=== PATIENT | male | born 1990 | race Caucasian/White ===

== ENCOUNTER 2022-03-28 11:43 | Observation (INO) | payer OTHER, SELFPAY ==
[2022-03-28 11:46] VITALS: BP 137/89; PULSE 112; RESP 18; TEMP 36.2; O2SAT 100; BMI 24.5
--- NOTE | 2022-03-28 12:30 | EKG12_ITS ---
Test Reason : ABN LABS Blood Pressure : / mmHG Vent. Rate : 096 BPM Atrial Rate : 096 BPM P-R Int : 152 ms QRS Dur : 086 ms QT Int : 330 ms P-R-T Axes : 041 000 006 degrees QTc Int : 416 ms Normal sinus rhythm Normal ECG Confirmed by JHON MARTINEZ, RAPHAEL ([id number]), editor book TROY KRISHNA ([id number]) on 03/30/2022 10:45:26 AM Referred By: Confirmed By:RAPHAEL FERREIRA MD
--- NOTE | 2022-03-28 12:37 | EX.ED.DYSGE1 ---
HPI History of Present Illness Chief Complaint: General Illness Narrative Narrative: 31-year-old [place] male with history of schizophrenia presenting with generalized fatigue. His father states that he has just been sluggish for about 2 weeks to 4 weeks. He states is not dizzy or falling. He states he does drink a lot of water. He states has been urinating frequently. Patient is currently on Depakote for history of schizophrenia. Father states that he had routine blood work done yesterday and follow-up because he is on Depakote. Depakote level was ordered but is pending and will not come back until Wednesday. Patient had a BMP which showed a low sodium at 120. Patient was sent to the emergency room. Patient does not complain of any lightheadedness, dizziness, falling. Father reports only sluggishness and increased thirst. PFSH PFSH Medical History Psychiatric diagnosis Home Medications desmopressin 0.2 mg tablet 0.2 mg PO DAILY BED WETTING 03/28/22 [History Last Taken 03/27/22] divalproex 500 mg tablet,extended release 24 hr 500 mg PO BID SCHITZOPHRENIA 03/28/22 [History Last Taken 03/28/22] gabapentin 100 mg capsule 100 mg PO BID TENSION 03/28/22 [History Last Taken 03/28/22] olanzapine 15 mg tablet 15 mg PO DAILY SIDE EFFECTES OF DIVALPROEX 03/28/22 [History Last Taken 03/27/22] Allergy/AdvReac Type Severity Reaction Status Date / Time No Known Allergies Allergy Verified 03/28/22 11:45 Social History Smoking Status: Never smoker ROS ROS ED Constitutional Constitutional ED: Denies chills or fever(s) Eyes Eyes: Denies change in vision or diplopia ENT ENT ED: Denies rhinorrhea or sore throat Cardiovascular Cardiovascular: Denies chest pain or palpitations Respiratory/Chest Respiratory/Chest: Denies cough or dyspnea Gastrointestinal Gastrointestinal: Denies abdominal pain, nausea or vomiting Genitourinary Genitourinary ED: Reports urinary frequency Musculoskeletal Musculoskeletal: Denies arthralgias or back pain Integumentary Denies abscess Neurologic Neurologic: Denies headache(s) Endocrine Endocrinology: Reports polydipsia and polyuria EXAM Physical Exam Const Vital Signs: 03/28/22 11:46 03/28/22 11:50 Temperature 97.1 F L Temperature Source Oral Pulse Rate 112 H Respiratory Rate 18 Respiratory Pattern Normal Blood Pressure 137/89 H Blood Pressure Mean 105 Pulse Ox 100 Oxygen Delivery Method Room Air Positive well nourished General Appearance ED: NAD; Negative for pallor HEENT Reports moist mucous membranes Eyes PERRL and EOMs intact bilaterally Chest Wall inspection of chest normal and palpation of chest normal Resp normal respiratory effort Auscultation: Negative for rales, rhonchi or wheezes Cardio regular rate Rate: tachycardic GI normal to inspection, nondistended, normoactive bowel sounds Extremity normal to inspection General Extremety ED: Negative for edema or tenderness General Extremity: Negative for edema Neuro Sensorium / Orientation: alert Psych mental status grossly normal Skin no rashes or lesions noted and no wounds General Skin Exam: Negative for jaundice or pallor MDM MDM MDM Narrative Medical decision making narrative: Patient presenting with history of low sodium. His father states his lowest was 117 years ago when he was admitted [facility]. Differential at this point includes hyponatremia, hypochloremia, Depakote toxicity, dehydration, anemia. He had a CMP performed yesterday which shows that his BUN was 7, creatinine 0.69 sodium 120. We will obtain a CBC to assess for white blood cell count and differential. Will obtain repeat BMP to compare to previous. Patient is also on Depakote I will obtain a level of this. CBC shows no leukocytosis. Hemoglobin hematocrit are stable. Platelets are normal. BMP shows hyponatremia with a sodium 123. There is also low chloride at 90. Creatinine is normal. GFR is normal. Glucose slightly elevated at 114 without anion gap. Depakote level is 41 and slightly low. Urinalysis obtained for urinary frequency and is negative. Impression: 1. Hyponatremia 2. Subtherapeutic Depakote level 3. History of desmopressin use Lab Data Attestation: I reviewed the patient's lab results. Labs: Laboratory Results - last 24 hr 03/28/22 03/28/22 03/28/22 12:55 12:55 12:55 WBC 7.1 RBC 5.40 Hgb 15.4 Hct 44.6 MCV 82.6 MCH 28.5 MCHC 34.5 RDW Std Deviation 39.4 RDW Coeff of Jeff 13.2 Plt Count 250 MPV 9.9 Immature Gran % (Auto) 0.600 Neut % (Auto) 71.9 H Lymph % (Auto) 16.3 L [place] % (Auto) 10.2 H Eos % (Auto) 0.4 Baso % (Auto) 0.6 Absolute Neuts (auto) 5.1 Absolute Lymphs (auto) 1.15 Nucleated RBC % 0 Sodium 123 L Potassium 4.7 Chloride 90 L Carbon Dioxide 28.0 Anion Gap 5 BUN 7 Creatinine 0.68 L Estim Creat Clear Calc 143.34 Est GFR (MDRD) Af Amer 176 Est GFR (MDRD) Non-Af 145 BUN/Creatinine Ratio 10.3 Glucose 114 H Calcium 9.3 Total Bilirubin 0.40 AST 35 ALT 109 H Alkaline Phosphatase 78 Total Protein 7.1 Albumin 4.1 Globulin 3.0 Albumin/Globulin Ratio 1.4 Urine Color Urine Clarity Urine pH Ur Specific [place] Urine Protein Urine Glucose (UA) Urine Ketones Urine Occult Blood Urine Nitrite Urine Bilirubin Urine Urobilinogen Ur Leukocyte Esterase Urine RBC Urine WBC Ur Squamous Epith Cells Urine Bacteria Urine Mucus Valproic Acid 41 L 03/28/22 12:55 WBC RBC Hgb Hct MCV MCH MCHC RDW Std Deviation RDW Coeff of Jeff Plt Count MPV Immature Gran % (Auto) Neut % (Auto) Lymph % (Auto) [place] % (Auto) Eos % (Auto) Baso % (Auto) Absolute Neuts (auto) Absolute Lymphs (auto) Nucleated RBC % Sodium Potassium Chloride Carbon Dioxide Anion Gap BUN Creatinine Estim Creat Clear Calc Est GFR (MDRD) Af Amer Est GFR (MDRD) Non-Af BUN/Creatinine Ratio Glucose Calcium Total Bilirubin AST ALT Alkaline Phosphatase Total Protein Albumin Globulin Albumin/Globulin Ratio Urine Color Yellow Urine Clarity Clear Urine pH 8.0 Ur Specific [place] 1.010 Urine Protein Negative Urine Glucose (UA) Normal Urine Ketones Negative Urine Occult Blood Negative Urine Nitrite Negative Urine Bilirubin Negative Urine Urobilinogen Normal Ur Leukocyte Esterase Negative Urine RBC 0 SEEN Urine WBC 0 SEEN Ur Squamous Epith Cells 0 SEEN Urine Bacteria 0 SEEN Urine Mucus 0 SEEN Valproic Acid Discharge Plan Triage Chief Complaint: General Illness ED Provider: Jesus Braga Dx/Rx/DC Orders Prescriptions: No Action desmopressin 0.2 mg tablet 0.2 mg PO DAILY Label Comments: TAKE ONE TABLET BY MOUTH EVERY EVENING divalproex 500 mg tablet extended release 24 hr 500 mg PO BID Label Comments: TAKE ONE TABLET BY MOUTH TWICE DAILY olanzapine 15 mg tablet 15 mg PO DAILY Label Comments: TAKE TWO TABLETS BY MOUTH EVERY NIGHT AT BEDTIME gabapentin 100 mg capsule 100 mg PO BID Label Comments: TAKE TWO CAPSULES BY MOUTH TWICE DAILY Primary Care Provider: Trip Drake Referrals: Trip Drake DO [Primary Care Provider] -
[2022-03-28 13:02] LABS: Bacteria 0 SEEN /hpf (None Seen); Mucous, Urine 0 SEEN /hpf (<or=2+); Red Blood Cells-Urine 0 SEEN /hpf (0-5); Squamous Epithelial Cells - UA 0 SEEN /hpf (0-5); White Blood Cells 0 SEEN /hpf (0-5)
[2022-03-28 13:05] LABS: Absolute Lymphocyte Count 1.15 X10^3/uL (0.83-4.51); Absolute Neutrophil Count 5.1 X10^3/uL (2.0-7.7); Basophil# 0.04 X10^3/uL; Basophil% 0.6 % (0-1); Eosinophil# 0.03 X10^3/uL; Eosinophils% 0.4 % (0-5); Hematocrit 44.6 % (40-54); Hemoglobin 15.4 g/dL (13.0-16.5); Lymphocyte # 1.15 X10^3/ul (0.83-4.51); Lymphocyte % 16.3 % (19-41); Mean Corp Hgb Conc 34.5 g/dL (32-36); Mean Corpuscular Hgb 28.5 pg (27.0-32.0); Mean Corpuscular Volume 82.6 fL (80-94); Mean Platelet Vol. 9.9 fl (6.2-12.0); Monocyte# 0.72 X10^3/uL; Monocyte% 10.2 % (0-10); NRBC Flagged by Analyzer 0 % (0-5); Neutrophil # 5.07 X10^3/uL (2.7-7.7); Neutrophil % 71.9 % (47-70); Platelet Count 250 K/mm3 (150-450); RBC Distribution Width CV 13.2 % (11.6-14.6); RBC Distribution Width SD 39.4 fl (35.1-43.9); White Blood Count 7.1 K/mm3 (4.4-11.0)
[2022-03-28 13:06] LABS: Color, Urine Yellow (Yellow); Glucose, Dipstick Normal (Normal); Ketone-Dipstick Negative (Negative); Leukocyte Esterase-Dipstick Negative /ul (Negative); Nitrite-Dipstick Negative (Negative); Occult Blood-Urine Negative /ul (Negative); Protein-Dipstick Negative (Negative); Urine Bilirubin Dipstick Negative (Negative); Urine Clarity Clear (Clear); Urine Urobilinogen Normal (Normal)
[2022-03-28 13:22] LABS: ALB/GLOB Ratio 1.4 RATIO (0.9-2.4); AST(SGOT) 35 U/L (15-37); Alanine Aminotransfer ALT/SGPT 109 U/L (16-61); Albumin, Serum 4.1 g/dL (3.2-5.0); Alkaline Phosphatase 78 U/L (45-117); Anion Gap 5 (5-15); BUN 7 mg/dL (7-18); BUN/Creat Ratio 10.3 RATIO (10-20); Calcium,Total 9.3 mg/dL (8.5-10.1); Chloride 90 mmol/L (98-107); Creatinine, Serum 0.68 mg/dL (0.70-1.30); EST Glomerular Filtration Rate 145 mL/min (>60); Est Glom Filt Rate - Afr Amer 176 mL/min (>60); Estimated Creatinine Clearance 143.34 ml/min; Glucose 114 mg/dL (74-106); Potassium 4.7 mmol/L (3.5-5.1); Protein, Total 7.1 g/dL (6.4-8.2); Sodium Level 123 mmol/L (136-145)
[2022-03-28 13:27] LABS: Valproic Acid (Depakene) Level 41 ug/mL (50-100)
[2022-03-28 15:18] VITALS: BP 143/85; PULSE 97; RESP 14; TEMP 36.2; O2SAT 98
--- NOTE | 2022-03-28 15:57 | HP.PCM.HOS_ITS ---
HPI - General General Date of Admission: 03/28/22 HPI Narrative ROMAN BRADY, is a 31 M who presents to the hospital with abnormal labs. He was seen by his psychiatrist on and they recommended outpatient lab work and he was notified by nursing today that his sodium was of 120 so they were asked to come into the ER for further evaluation. Other work-up is unremarkable and his sodium today is 123. He does have a history of schizophrenia and is on desmopressin which can lead to both increased water intake as well as hyponatremia. He is on the desmopressin for bedwetting and he is on Depakote and olanzapine for schizophrenia. No other fevers or chills, he does not appear to be dehydrated and in fact his father indicates that he drinks quite a bit of water on his own. No major infectious etiology, there was a valproic acid level done in the ER today which came back low at 41. [facility] Medical History Psychiatric diagnosis Home Medications desmopressin 0.2 mg tablet 0.2 mg PO DAILY BED WETTING 03/28/22 [History Last Taken 03/27/22] divalproex 500 mg tablet,extended release 24 hr 500 mg PO BID SCHITZOPHRENIA 03/28/22 [History Last Taken 03/28/22] gabapentin 100 mg capsule 100 mg PO BID TENSION 03/28/22 [History Last Taken 03/28/22] olanzapine 15 mg tablet 15 mg PO DAILY SIDE EFFECTES OF DIVALPROEX 03/28/22 [History Last Taken 03/27/22] Allergy/AdvReac Type Severity Reaction Status Date / Time No Known Allergies Allergy Verified 03/28/22 11:45 Family History (Updated 03/28/22 @ 16:[address] Omid Ladd MD) Other CVA (cerebral vascular accident) no surgical history Social History Smoking Status: Never smoker ROS Constitutional Constitutional: Reports fatigue; Denies chills, fever(s) or malaise Eyes Eyes: Denies blurry vision ENT HEENT: Denies headache(s) or nasal discharge Cardiovascular Cardiovascular: Denies chest pain, dyspnea on exertion or syncope Respiratory/Chest Respiratory/Chest: Denies cough, shortness of breath at rest or shortness of breath with exertion Gastrointestinal Gastrointestinal: Denies constipation, diarrhea, nausea or vomiting Genitourinary Genitourinary: Reports urinary frequency; Denies dysuria Neurologic Neurologic: Denies focal weakness, numbness or tremor(s) Psychiatric Psychiatric: Denies anxiety or depression Vital Signs Vital Signs Vital Signs: 03/28/22 11:46 03/28/22 11:50 03/28/22 15:18 Temperature 97.1 F L 97.2 F L Temperature Source Oral Temporal Pulse Rate 112 H 97 Respiratory Rate 18 14 Respiratory Pattern Normal Blood Pressure 137/89 H 143/85 H Blood Pressure Mean 105 104 Pulse Ox 100 98 Oxygen Delivery Method Room Air Room Air Weight Weight: 152 lb 5.431 oz Body Mass Index (BMI) 24.5 Physical Exam Narrative General: Alert, Oriented x3, Cooperative, No apparent distress HEENT: Atraumatic, PERRLA, EOMI, Normocephalic Oral: Moist Mucosa Neck: Supple, No JVD Lungs: Clear to auscultation, Normal air movement, No rhonchi, No wheeze, No rales Cardiovascular: Regular rate, Regular Rhythm, Normal S1, Normal S2, No murmurs Abdomen: Soft, Non Tender, Non-Distended, No Hepato-splenomegaly Extremities: No edema, Capillary Refill Less than 3 Seconds Skin: No rashes, No breakdown Musculoskeletal: No Tenderness to Palpation of Joints or Extremities Neurological: Cranial nerves II-XII grossly intact, Motor Exam 5/5 strength throughout, Sensory exam intact to light touch and pain Psych/Mental Status: Flat affect, Appropriate Results Lab / Micro Data Result Diagrams: 03/28/22 12:55 03/28/22 12:55 Labs: Laboratory Results - last 24 hr 03/28/22 12:55: WBC 7.1, RBC 5.40, Hgb 15.4, Hct 44.6, MCV 82.6, MCH 28.5, MCHC 34.5, RDW Std Deviation 39.4, RDW Coeff of Jeff 13.2, Plt Count 250, MPV 9.9, Immature Gran % (Auto) 0.600, Neut % (Auto) 71.9 H, Lymph % (Auto) 16.3 L, [place] % (Auto) 10.2 H, Eos % (Auto) 0.4, Baso % (Auto) 0.6, Absolute Neuts (auto) 5.1, Absolute Lymphs (auto) 1.15, Nucleated RBC % 0 03/28/22 12:55: Sodium 123 L, Potassium 4.7, Chloride 90 L, Carbon Dioxide 28.0, Anion Gap 5, BUN 7, Creatinine 0.68 L, Estim Creat Clear Calc 143.34, Est GFR (MDRD) Af Amer 176, Est GFR (MDRD) Non-Af 145, BUN/Creatinine Ratio 10.3, Glucose 114 H, Calcium 9.3, Total Bilirubin 0.40, AST 35, ALT 109 H, Alkaline Phosphatase 78, Total Protein 7.1, Albumin 4.1, Globulin 3.0, Albumin/Globulin Ratio 1.4 03/28/22 12:55: Valproic Acid 41 L 03/28/22 12:55: Urine Color Yellow, Urine Clarity Clear, Urine pH 8.0, Ur Specific [place] 1.010, Urine Protein Negative, Urine Glucose (UA) Normal, Urine Ketones Negative, Urine Occult Blood Negative, Urine Nitrite Negative, Urine Bi lirubin Negative, Urine Urobilinogen Normal, Ur Leukocyte Esterase Negative, Urine RBC 0 SEEN, Urine WBC 0 SEEN, Ur Squamous Epith Cells 0 SEEN, Urine Bacteria 0 SEEN, Urine Mucus 0 SEEN Assessment & Plan Assessment/Plan (1) Hyponatremia: PLAN: Plan 1. Hyponatremia secondary to desmopressin and excessive water intake/schizophrenia ? We will place him on a fluid restriction ? Discontinue desmopressin ? Continue with Depakote and olanzapine ? We will check urine electrolytes DVT: Ambulation Charges/Coding Visit Charges Inpatient E&M: 29125 Init Hosp L2
[2022-03-28 15:58] VITALS: BP 133/81; PULSE 87; RESP 16; O2SAT 99
[2022-03-28 16:14] VITALS: BMI 21.9
[2022-03-28 16:45] VITALS: PULSE 100
[2022-03-28 16:55] LABS: Creatinine, Urine (random) < 13.00 mg/dL (NO RANGE EST.); Urine Chloride 65 mmol/L (Not Establ.); Urine Sodium 65 mmol/L (Not Establ.)
[2022-03-28 20:00] VITALS: BP 104/52; PULSE 65; RESP 16; TEMP 37; O2SAT 98
[2022-03-28] MEDS: Gabapentin 100 MG Capsule PO (21:31)
[2022-03-28] MEDS: Divalproex (ER) 500 MG Tablet PO (21:31)
[2022-03-28] MEDS: OLANZapine 10 MG Tablet 30 MG PO (21:31)
[2022-03-29 02:00] VITALS: BP 107/57; PULSE 64; RESP 16; TEMP 36.5; O2SAT 99
[2022-03-29 06:59] LABS: Anion Gap 9 (5-15); BUN 14 mg/dL (7-18); BUN/Creat Ratio 14.4 RATIO (10-20); Calcium,Total 9.1 mg/dL (8.5-10.1); Chloride 102 mmol/L (98-107); Creatinine, Serum 0.97 mg/dL (0.70-1.30); EST Glomerular Filtration Rate 96 mL/min (>60); Est Glom Filt Rate - Afr Amer 116 mL/min (>60); Estimated Creatinine Clearance 96.86 ml/min; Glucose 92 mg/dL (74-106); Potassium 4.5 mmol/L (3.5-5.1); Sodium Level 133 mmol/L (136-145)
--- NOTE | 2022-03-29 07:06 | DCINST_ITS ---
Discharge Instructions Diet Discharge Diet: No restrictions and 8 Cup Fluid Restriction Activity Discharge Activity: Return to Normal Activity Dressing / Incision Call your doctor if you observe: Fever of 101 or Higher, Shortness of breath, Dizziness, Fainting spells, Swelling in the ankles, Chest pain and Increased palpitations (irregular heartbeat) Follow Up Care Test Results: Test results from this visit will be discussed in further detail at your follow- up appointment, if applicable. Discharge Plan Admission Admit Date/Time: 03/28/22 14:15 Attending Provider: Omid Ladd Instructions Additional Instructions / Restrictions: Discontinue the desmopressin on discharge or attempt to imposed a 2 L fluid restriction at home to prevent bedwetting. Follow-up with PCP and/or psychiatrist for other treatment modalities of bedwetting. Discharge Orders/Prescriptions Prescriptions: Continued divalproex 500 mg tablet extended release 24 hr 500 mg PO BID Label Comments: TAKE ONE TABLET BY MOUTH TWICE DAILY olanzapine 15 mg tablet 15 mg PO DAILY Label Comments: TAKE TWO TABLETS BY MOUTH EVERY NIGHT AT BEDTIME gabapentin 100 mg capsule 100 mg PO BID Label Comments: TAKE TWO CAPSULES BY MOUTH TWICE DAILY Discontinued desmopressin 0.2 mg tablet 0.2 mg PO DAILY Label Comments: TAKE ONE TABLET BY MOUTH EVERY EVENING Referrals / Follow Up: Trip Drake, DO [Non-Staff] - Within 1 Week Disposition Disposition (needs filled in before D/C Order can be placed): Home, Self Care
[2022-03-29 08:00] VITALS: BP 115/70; PULSE 79; RESP 16; TEMP 36.1; O2SAT 98
--- NOTE | 2022-03-29 10:13 | PCM.DC.SUM ---
Providers Date of Admission: 03/28/22 Reason For Visit: HYPONATREMIA Diagnosis Discharge Diagnosis (1) Hyponatremia: Status: Acute Code(s): E87.1 - Hypo-osmolality and hyponatremia Plan 1. Hyponatremia secondary to desmopressin and excessive water intake/schizophrenia ? We will place him on a fluid restriction ? Discontinue desmopressin ? Continue with Depakote and olanzapine ? We will check urine electrolytes DVT: Ambulation Medications at Discharge Home Medications divalproex 500 mg tablet,extended release 24 hr 500 mg PO BID SCHITZOPHRENIA 03/28/22 gabapentin 100 mg capsule 100 mg PO BID TENSION 03/28/22 olanzapine 15 mg tablet 15 mg PO DAILY SIDE EFFECTES OF DIVALPROEX 03/28/22 Hospital Course Operations None Procedures None Summary of Care Provided Minutes Spent on Discharge: 32 Hospital Course: Per HPI: ROMAN BRADY, is a 31 M who presents to the hospital with abnormal labs.? He was seen by his psychiatrist on and they recommended outpatient lab work and he was notified by nursing today that his sodium was of 120 so they were asked to come into the ER for further evaluation.? Other work-up is unremarkable and his sodium today is 123.? He does have a history of schizophrenia and is on desmopressin which can lead to both increased water intake as well as hyponatremia.? He is on the desmopressin for bedwetting and he is on Depakote and olanzapine for schizophrenia.? No other fevers or chills, he does not appear to be dehydrated and in fact his father indicates that he drinks quite a bit of water on his own.? No major infectious etiology, there was a valproic acid level done in the ER today which came back low at 41. Hospital Course: 1.? Hyponatremia secondary to desmopressin and excessive water intake/schizophrenia ? We will place him on a fluid restriction ? Discontinue desmopressin ? Continue with Depakote and olanzapine ? 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 Discussed with the family to continue the desmopressin and place him on a fluid restriction it is possible that if he continues to wet the bed despite the fluid restriction may be okay to restart the desmopressin with outpatient evaluation and electrolyte follow-up. Today his sodium is 133, he feels weak and I discussed with the father for the possibility for discharge today he expressed understanding of the risk benefits going home and is okay with going home today. I do recommend outpatient follow-up with his PCP in 3 to 5 days to evaluate his sodium. I did have an in-depth discussion with the father about fluid restriction at home as well. Physical Exam Narrative General: Alert, Oriented x3, Cooperative, No apparent distress HEENT: Atraumatic, PERRLA, EOMI, Normocephalic Oral: Moist Mucosa Neck: Supple, No JVD Lungs: Clear to auscultation, Normal air movement, No rhonchi, No wheeze, No rales Cardiovascular: Regular rate, Regular Rhythm, Normal S1, Normal S2, No murmurs Abdomen: Soft, Non Tender, Non-Distended, No Hepato-splenomegaly Extremities: No edema, Capillary Refill Less than 3 Seconds Skin: No rashes, No breakdown Musculoskeletal: No Tenderness to Palpation of Joints or Extremities Neurological: Cranial nerves II-XII grossly intact, Motor Exam 5/5 strength throughout, Sensory exam intact to light touch and pain Psych/Mental Status: Flat affect, Appropriate Weight / BMI Weight Weight: 135 lb 9.349 oz Body Mass Index (BMI) 21.9 ABG / Lab / Microbiology Data Result Diagrams: 03/28/22 12:55 03/29/22 05:25 Laboratory: Laboratory Results - last 24 hr 03/28/22 12:55: WBC 7.1, RBC 5.40, Hgb 15.4, Hct 44.6, MCV 82.6, MCH 28.5, MCHC 34.5, RDW Std Deviation 39.4, RDW Coeff of Jeff 13.2, Plt Count 250, MPV 9.9, Immature Gran % (Auto) 0.600, Neut % (Auto) 71.9 H, Lymph % (Auto) 16.3 L, [place] % (Auto) 10.2 H, Eos % (Auto) 0.4, Baso % (Auto) 0.6, Absolute Neuts (auto) 5.1, Absolute Lymphs (auto) 1.15, Nucleated RBC % 0 03/28/22 12:55: Sodium 123 L, Potassium 4.7, Chloride 90 L, Carbon Dioxide 28.0, Anion Gap 5, BUN 7, Creatinine 0.68 L, Estim Creat Clear Calc 143.34, Est GFR (MDRD) Af Amer 176, Est GFR (MDRD) Non-Af 145, BUN/Creatinine Ratio 10.3, Glucose 114 H, Calcium 9.3, Total Bilirubin 0.40, AST 35, ALT 109 H, Alkaline Phosphatase 78, Total Protein 7.1, Albumin 4.1, Globulin 3.0, Albumin/Globulin Ratio 1.4 03/28/22 12:55: Valproic Acid 41 L 03/28/22 12:55: Urine Color Yellow, Urine Clarity Clear, Urine pH 8.0, Ur Specific [place] 1.010, Urine Protein Negative, Urine Glucose (UA) Normal, Urine Ketones Negative, Urine Occult Blood Negative, Urine Nitrite Negative, Urine Bilirubin Negative, Urine Urobilinogen Normal, Ur Leukocyte Esterase Negative, Urine RBC 0 SEEN, Urine WBC 0 SEEN, Ur Squamous Epith Cells 0 SEEN, Urine Bacteria 0 SEEN, Urine Mucus 0 SEEN 03/28/22 12:55: Ur Random Sodium 65, Urine Creatinine < 13.00, Urine Potassium 16.0, Urine Chloride 65 03/29/22 05:25: Sodium 133 L, Potassium 4.5, Chloride 102, Carbon Dioxide 22.0, Anion Gap 9, BUN 14, Creatinine 0.97, Estim Creat Clear Calc 96.86, Est GFR (MDRD) Af Amer 116, Est GFR (MDRD) Non-Af 96, BUN/Creatinine Ratio 14.4, Glucose 92, Calcium 9.1 D/C Instructions Discharge Diet: No restrictions and 8 Cup Fluid Restriction Call your doctor if you observe: Fever of 101 or Higher, Shortness of breath, Dizziness, Fainting spells, Swelling in the ankles, Chest pain and Increased palpitations (irregular heartbeat) Meaningful Use Info Meaningful Use Diagnoses (Choose all that apply): None applicable Discharge Plan Admission Admit Date/Time: 03/28/22 14:15 Attending Provider: Omid Ladd Instructions Additional Instructions / Restrictions: Discontinue the desmopressin on discharge or attempt to imposed a 2 L fluid restriction at home to prevent bedwetting. Follow-up with PCP and/or psychiatrist for other treatment modalities of bedwetting. Discharge Orders/Prescriptions Prescriptions: Continued divalproex 500 mg tablet extended release 24 hr 500 mg PO BID Label Comments: TAKE ONE TABLET BY MOUTH TWICE DAILY olanzapine 15 mg tablet 15 mg PO DAILY Label Comments: TAKE TWO TABLETS BY MOUTH EVERY NIGHT AT BEDTIME gabapentin 100 mg capsule 100 mg PO BID Label Comments: TAKE TWO CAPSULES BY MOUTH TWICE DAILY Discontinued desmopressin 0.2 mg tablet 0.2 mg PO DAILY Label Comments: TAKE ONE TABLET BY MOUTH EVERY EVENING Referrals / Follow Up: Trip Drake DO [Non-Staff] - Within 1 Week Disposition Disposition (needs filled in before D/C Order can be placed): Home, Self Care Charges/Coding Visit Charges Inpatient E&M: 27620 Disch Hosp >30min
== END 2022-03-29 11:16 | disposition home or self-care (01) ==
LOC: ED 12:22 → MS3 15:19
PROVIDERS: Admitting Provider Family Medicine; Emergency Provider Student in an Organized Health Care Education/Training Program; Visit Provider Family Medicine
DX: E87.1 Hypo-osmolality and hyponatremia (principal); F20.9 Schizophrenia, unspecified; Z79.899 Other long term (current) drug therapy; T38.895A Adverse effect of other hormones and synthetic substitutes, initial encounter; R32 Unspecified urinary incontinence
CPT/HCPCS: 36415; 80048; 80053; 80164; 81001; 82436; 82570; 84133; 84300; 85025; 93005; 99221; 99285; G0378

== ENCOUNTER → 2023-03-25 | Outpatient (CLI) | payer SELFPAY ==
[2023-03-25 11:35] LABS: Absolute Lymphocyte Count 2.06 X10^3/uL (0.83-4.51); Absolute Neutrophil Count 8.1 X10^3/uL (2.0-7.7); Basophil# 0.05 X10^3/uL; Basophil% 0.4 % (0-1); Eosinophil# 0.07 X10^3/uL; Eosinophils% 0.6 % (0-5); Hematocrit 45.7 % (40-54); Lymphocyte # 2.06 X10^3/ul (0.83-4.51); Lymphocyte % 18.5 % (19-41); Mean Corp Hgb Conc 32.8 g/dL (32-36); Mean Corpuscular Volume 85.4 fL (80-94); Mean Platelet Vol. 9.9 fl (6.2-12.0); Monocyte# 0.82 X10^3/uL; Monocyte% 7.4 % (0-10); NRBC Flagged by Analyzer 0 % (0-5); Neutrophil # 8.06 X10^3/uL (2.7-7.7); Neutrophil % 72.3 % (47-70); Platelet Count 223 K/mm3 (150-450); RBC Distribution Width CV 13.9 % (11.6-14.6); Red Blood Count 5.35 M/mm3 (4.6-6.2); White Blood Count 11.2 K/mm3 (4.4-11.0)
[2023-03-25 11:58] LABS: Valproic Acid (Depakene) Level 64 ug/mL (50-100)
[2023-03-25 11:59] LABS: AST(SGOT) 23 U/L (15-37); Alanine Aminotransfer ALT/SGPT 49 U/L (16-61); Albumin, Serum 3.5 g/dL (3.2-5.0); Alkaline Phosphatase 90 U/L (45-117); Anion Gap 4 (5-15); BUN 7 mg/dL (7-18); BUN/Creat Ratio 8.7 RATIO (10-20); Calcium,Total 9.4 mg/dL (8.5-10.1); Chloride 107 mmol/L (98-107); Cholesterol 181 mg/dL (200); EST Glomerular Filtration Rate 119 mL/min (>60); Est Glom Filt Rate - Afr Amer 144 mL/min (>60); Globulin 3.6 g/dL (2.2-4.2); Glucose 106 mg/dL (74-106); Potassium 4.1 mmol/L (3.5-5.1); Protein, Total 7.1 g/dL (6.4-8.2); Sodium Level 137 mmol/L (136-145)
== END | disposition home or self-care (01) ==
PROVIDERS: Referring Provider Student in an Organized Health Care Education/Training Program; Visit Provider Student in an Organized Health Care Education/Training Program
DX: Z51.81 Encounter for therapeutic drug level monitoring (principal); F25.0 Schizoaffective disorder, bipolar type
CPT/HCPCS: 36415; 80053; 80164; 82465; 85025

== ENCOUNTER → 2024-06-21 | Outpatient (CLI) | payer SELFPAY ==
[2024-06-21 14:52] LABS: Absolute Lymphocyte Count 1.44 X10^3/uL (0.83-4.51); Basophil# 0.03 X10^3/uL; Basophil% 0.3 % (0-1); Eosinophil# 0.02 X10^3/uL; Eosinophils% 0.2 % (0-5); Hematocrit 43.8 % (40-54); Hemoglobin 14.4 g/dL (13.0-16.5); Lymphocyte # 1.44 X10^3/ul (0.83-4.51); Lymphocyte % 14.2 % (19-41); Mean Corp Hgb Conc 32.9 g/dL (32-36); Mean Corpuscular Hgb 26.3 pg (27.0-32.0); Mean Corpuscular Volume 79.9 fL (80-94); Mean Platelet Vol. 9.3 fl (6.2-12.0); Monocyte# 0.57 X10^3/uL; Monocyte% 5.6 % (0-10); NRBC Flagged by Analyzer 0 % (0-5); Neutrophil # 8.02 X10^3/uL (2.7-7.7); Neutrophil % 79.1 % (47-70); Platelet Count 244 K/mm3 (150-450); RBC Distribution Width CV 13.8 % (11.6-14.6); RBC Distribution Width SD 40.1 fl (35.1-43.9); Red Blood Count 5.48 M/mm3 (4.6-6.2); White Blood Count 10.1 K/mm3 (4.4-11.0)
[2024-06-21 15:24] LABS: Cholesterol 155 mg/dL (<=200)
[2024-06-21 15:25] LABS: ALB/GLOB Ratio 1.5 RATIO (0.9-2.4); AST(SGOT) 23 U/L (<=37); Alanine Aminotransfer ALT/SGPT 27 U/L (<=46); Albumin, Serum 4.2 g/dL (3.5-5.0); Alkaline Phosphatase 86 U/L (40-129); Anion Gap 12 (5-15); BUN 7 mg/dL (4-19); BUN/Creat Ratio 9.7 RATIO (10-20); Calcium,Total 9.1 mg/dL (7.6-11.0); Carbon Dioxide 24.1 mmol/L (21.0-32.0); Chloride 99 mmol/L (98-108); Creatinine, Serum 0.72 mg/dL (0.70-1.20); EST Glomerular Filtration Rate 125 (>60); Globulin 2.8 g/dL (2.2-4.2); Glucose 104 mg/dL (70-99); Potassium 4.5 mmol/L (3.3-5.1); Sodium Level 135 mmol/L (133-145); Total Bilirubin < 0.15 mg/dL (0.00-1.30)
[2024-06-21 15:58] LABS: Valproic Acid (Depakene) Level 57 ug/mL (50-100)
== END | disposition home or self-care (01) ==
PROVIDERS: Referring Provider Student in an Organized Health Care Education/Training Program; Visit Provider Student in an Organized Health Care Education/Training Program
DX: F25.0 Schizoaffective disorder, bipolar type (principal); Z51.81 Encounter for therapeutic drug level monitoring
CPT/HCPCS: 36415; 80053; 80164; 82465; 85025